=== PATIENT | female | born 1995 | race Hispanic/Latino ===

== ENCOUNTER 2021-06-20 20:35 | Emergency (ER) | payer MEDICAID ==
[~2021-06-20] VITALS: Ht 160 cm; Wt 78.5 kg
[2021-06-20 21:10] LABS: BASOPHILS % (AUTO) 0.3 % (0.0-5.0); EOSINOPHILS % (AUTO) 0.5 % (0.0-8.0); HEMATOCRIT 37.3 % (36-48); MEAN CORPUSCULAR HGB CONC 33.2 g/dL (32.0-36.0); MEAN CORPUSCULAR VOLUME 87.4 fL (79-99); PLATELET COUNT (AUTO) 417 K/uL (130-400); RED BLOOD CELL COUNT(AUTO) 4.27 MIL/uL (4.00-5.50); RED CELL DISTRIBUTION WIDTH 11.9 % (11.0-15.5); WHITE BLOOD COUNT (AUTO) 12.5 K/uL (4.8-10.8)
[2021-06-20 21:11] LABS: APPEARANCE,URINE Cloudy (CLEAR); BILIRUBIN,URINE Negative (NEGATIVE); COLOR,URINE Yellow (YELLOW); GLUCOSE, URINE (UA) Negative (NEGATIVE); KETONES,URINE Negative (NEGATIVE); LEUKOCYTE ESTERASE ,URINE Small (NEGATIVE); NITRATE,URINE Negative (NEGATIVE); OCCULT BLOOD,URINE Large (NEGATIVE); PROTEIN,URINE Trace mg/dL (NEGATIVE); UROBILINOGEN,URINE 0.2 mg/dL (0.2-1.0)
[2021-06-20 21:13] LABS: HCG,QUAL RESULT POSITIVE (NEGATIVE)
[2021-06-20 21:20] LABS: CREATININE 0.7 mg/dL (0.5-1.5); POTASSIUM 3.4 mmol/L (3.5-5.1)
[2021-06-20 21:32] LABS: BACTERIA,URINE Few /HPF (None Seen); MUCUS,URINE Few LPF (None Seen); SQUAMOUS EPITHELIAL CELL,UR Few /HPF (0-2); TRICHOMONAS,URINE Moderate /LPF (None Seen)
[2021-06-20 21:51] LABS: ALBUMIN 3.9 g/dL (3.5-5.0); BILIRUBIN,TOTAL 0.1 mg/dL (0.2-1.0); TOTAL PROTEIN, SERUM 7.8 g/dL (6.0-8.3)
[2021-06-20] MEDS ORDERED: CEFTRIAXONE 1G VIAL ONE (22:30)
[2021-06-20] MEDS ORDERED: CEFTRIAXONE 1G VIAL IM ONE (22:30)
[2021-06-20 22:45] VITALS: BP 110/60
[2021-06-20] MEDS ORDERED: MACR100 PO (23:22)
== END 2021-06-20 23:33 | disposition home or self-care (01) ==
LOC: EDH 20:35
DX: O20.0 Threatened abortion (principal); N39.0 Urinary tract infection, site not specified; Z3A.01 Less than 8 weeks gestation of pregnancy
CPT/HCPCS: 36415; 76817; 80053; 81001; 81025; 84702; 85025; 86900; 86901; 96372; J0696

== ENCOUNTER 2021-06-23 23:24 | Emergency (ER) | payer MEDICAID ==
[~2021-06-23] VITALS: Ht 160 cm; Wt 78.5 kg
[~2021-06-23 23:24] MED LIST: MACR100 PO
[2021-06-24] MEDS ORDERED: ONDANSETRON 4MG INJ ONE (00:17)
[2021-06-24] MEDS ORDERED: MORPHINE 4 MG SYG ONE ×2 (00:18→02:41)
[2021-06-24] MEDS ORDERED: 0.9%NACL 1000ML 1,000 ML IV ONE (00:18)
[2021-06-24 00:25] LABS: CREATININE 0.7 mg/dL (0.5-1.5); POTASSIUM 3.5 mmol/L (3.5-5.1)
[2021-06-24 00:35] LABS: BASOPHILS % (AUTO) 0.4 % (0.0-5.0); EOSINOPHILS % (AUTO) 0.6 % (0.0-8.0); HEMATOCRIT 36.7 % (36-48); LYMPHOCYTES % (AUTO) 32.5 % (21.0-51.0); MEAN CORPUSCULAR HEMOGLOBIN 28.7 pg (27.0-33.0); MEAN CORPUSCULAR VOLUME 87.2 fL (79-99); MONOCYTES % (AUTO) 8.2 % (3.0-13.0); NEUTROPHILS % (AUTO) 58.2 % (40.0-77.0); PLATELET COUNT (AUTO) 423 K/uL (130-400); RED BLOOD CELL COUNT(AUTO) 4.21 MIL/uL (4.00-5.50); RED CELL DISTRIBUTION WIDTH 11.8 % (11.0-15.5); WHITE BLOOD COUNT (AUTO) 10.1 K/uL (4.8-10.8)
[2021-06-24 00:51] LABS: ALBUMIN 3.8 g/dL (3.5-5.0); BILIRUBIN,TOTAL 0.2 mg/dL (0.2-1.0); TOTAL PROTEIN, SERUM 7.7 g/dL (6.0-8.3)
[2021-06-24 01:11] VITALS: BP 99/52
[2021-06-24] MEDS ORDERED: ACET-2079 PO (03:12)
== END 2021-06-24 03:28 | disposition home or self-care (01) ==
LOC: EDH 23:24
DX: O03.4 Incomplete spontaneous abortion without complication (principal)
CPT/HCPCS: 36415; 76801; 80053; 84702; 85025; 86850; 86900; 86901; 96374; 96375; 96376; 99284; J2270 ×2; J2405; J7030

== ENCOUNTER 2022-05-27 11:21 | Observation (INO) | payer MEDICAID ==
[~2022-05-27] VITALS: Ht 160 cm; Wt 79.4 kg
[2022-05-27] VITALS (25 sets, daily range): BP systolic 96–126; BP diastolic 51–70
[~2022-05-27 11:21] MED LIST changes: +ACET-2079 PO
[2022-05-27 12:48] LABS: BASOPHILS % (AUTO) 0.3 % (0.0-5.0); EOSINOPHILS % (AUTO) 0.1 % (0.0-8.0); HEMATOCRIT 36.1 % (36-48); LYMPHOCYTES % (AUTO) 21.9 % (21.0-51.0); MEAN CORPUSCULAR HEMOGLOBIN 28.8 pg (27.0-33.0); MEAN CORPUSCULAR HGB CONC 33.2 g/dL (32.0-36.0); MEAN CORPUSCULAR VOLUME 86.8 fL (79-99); MONOCYTES % (AUTO) 4.7 % (3.0-13.0); NEUTROPHILS % (AUTO) 72.5 % (40.0-77.0); PLATELET COUNT (AUTO) 413 K/uL (130-400); RED BLOOD CELL COUNT(AUTO) 4.16 MIL/uL (4.00-5.50); RED CELL DISTRIBUTION WIDTH 12.1 % (11.0-15.5); WHITE BLOOD COUNT (AUTO) 10.9 K/uL (4.8-10.8)
[2022-05-27 12:54] LABS: CREATININE 0.7 mg/dL (0.5-1.5); POTASSIUM 3.4 mmol/L (3.5-5.1)
[2022-05-27 13:22] LABS: ALBUMIN 3.9 g/dL (3.5-5.0); TOTAL PROTEIN, SERUM 7.5 g/dL (6.0-8.3)
[2022-05-27] MEDS ORDERED: ONDANSETRON 4MG INJ IVP ONE (13:30)
[2022-05-27] MEDS ORDERED: MORPHINE 4 MG SYG IVP ONE (13:30)
[2022-05-27 14:06] LABS: APPEARANCE,URINE CLOUDY (CLEAR); BILIRUBIN,URINE NEGATIVE (NEGATIVE); COLOR,URINE YELLOW (YELLOW); GLUCOSE, URINE (UA) NEGATIVE (NEGATIVE); KETONES,URINE 20 mg/dL (NEGATIVE); LEUKOCYTE ESTERASE ,URINE 25 Leu/uL (NEGATIVE); NITRATE,URINE 2+ (NEGATIVE); OCCULT BLOOD,URINE MODERATE (NEGATIVE); PH,URINE 5.5 (5.0-8.0); PROTEIN,URINE 10 mg/dL (NEGATIVE); UROBILINOGEN,URINE 0.2 mg/dL (0.2-1.0)
[2022-05-27 14:19] LABS: BACTERIA,URINE MOD /HPF (None Seen); MUCUS,URINE FEW LPF (None Seen); SQUAMOUS EPITHELIAL CELL,UR MOD /HPF (0-2)
[2022-05-27] MEDS ORDERED: ONDANSETRON 4MG INJ ONE (15:46)
[2022-05-27] MEDS ORDERED: DEXAMETHASONE SOD PHOSPHATE 10MG/ML 1ML VIAL ONE (15:46)
[2022-05-27] MEDS ORDERED: MIDAZOLAM HCL 1 MG/ML 2ML VIAL ONE (15:46)
[2022-05-27] MEDS ORDERED: SUCCINYLCHOLINE CHLORIDE 20 MG/ML 10 ML VIAL ONE (15:46)
[2022-05-27] MEDS ORDERED: LIDOCAINE PF 100MG/5ML (2%) SYRINGE 5ML ONE (15:46)
[2022-05-27] MEDS ORDERED: KETOROLAC 30MG VIAL (30MG/ML) ONE (15:47)
[2022-05-27] MEDS ORDERED: GLYCOPYRROLATE 1 MG/5 ML SYRINGE ONE (15:47)
[2022-05-27] MEDS ORDERED: FENTANYL CITRATE PF 50 MCG/1 ML 2ML VIAL ONE ×2 (15:47→16:29)
[2022-05-27] MEDS ORDERED: ROCURONIUM 10MG/1ML SYR 10 MG/ML ML ONE (15:47)
[2022-05-27] MEDS ORDERED: PROPOFOL 10 MG/ML 20ML VIAL IV ONE (15:47)
[2022-05-27] MEDS ORDERED: PHENYLEPHRINE HCL 10 MG/ML 1ML VIAL IV ONE (17:26)
[2022-05-27] MEDS ORDERED: NEOSTIGMINE 5MG/5ML SYR IV ONE (17:30)
[2022-05-27] MEDS ORDERED: MEPERIDINE-PF 25 MG/ML SYG ONE ×2 (18:21→18:35)
[2022-05-27] MEDS ORDERED: ACETAMINOPHEN WITH CODEINE 1 TAB TAB PO PRN (20:00)
[2022-05-27] MEDS ORDERED: IBUPROFEN 600 MG TABLET PO PRN (20:00)
[2022-05-27] MEDS ORDERED: PROMETHAZINE HCL 25 MG/ML 1ML AMPULE IM PRN (20:00)
[2022-05-27] MEDS ORDERED: BISACODYL 10 MG SUPP.RECT RC PRN (20:00)
[2022-05-27] MEDS ORDERED: DOCUSATE SODIUM 100 MG CAP PO PRN (20:00)
[2022-05-27] MEDS: SIMETHICONE 80 MG TAB.CHEW PO PRN (21:12)
[2022-05-27] MEDS: PROMETHAZINE HCL 25 MG/ML 1ML AMPULE IM PRN (21:13)
[2022-05-27] MEDS: MEPERIDINE-PF 75 MG/ML SYG IM PRN (21:14)
[2022-05-27] MEDS: DEXTROSE 5%-LACTATED RINGERS 1,000 ML IV SCH (21:14)
[2022-05-28] MEDS: PROMETHAZINE HCL 25 MG/ML 1ML AMPULE IM PRN (00:06)
[2022-05-28] MEDS: MEPERIDINE-PF 75 MG/ML SYG IM PRN (00:06)
[2022-05-28 02:32] VITALS: BP 116/59
[2022-05-28] MEDS: DEXTROSE 5%-LACTATED RINGERS 1,000 ML IV SCH (05:18)
[2022-05-28 05:56] LABS: HEMATOCRIT 28.6 % (36-48); MEAN CORPUSCULAR HEMOGLOBIN 29.7 pg (27.0-33.0); MEAN CORPUSCULAR HGB CONC 32.9 g/dL (32.0-36.0); MEAN CORPUSCULAR VOLUME 90.2 fL (79-99); RED BLOOD CELL COUNT(AUTO) 3.17 MIL/uL (4.00-5.50); RED CELL DISTRIBUTION WIDTH 12.1 % (11.0-15.5); WHITE BLOOD COUNT (AUTO) 13.2 K/uL (4.8-10.8)
[2022-05-28 07:25] VITALS: BP 96/59
[2022-05-28] MEDS: SIMETHICONE 80 MG TAB.CHEW PO PRN (08:54)
[2022-05-28 11:25] VITALS: BP 98/54
== END 2022-05-28 15:25 | disposition home or self-care (01) ==
LOC: EDH 11:21 → EDHIP 11:22 → WSH 19:10
PROVIDERS: ADMIT Internal Medicine; ATTEND Internal Medicine
DX: O00.101 Right tubal pregnancy without intrauterine pregnancy (principal)
CPT/HCPCS: 59151; 96374; 96372 ×2; 96375; 99285; 80053; 84702; 85025; 85014; 85018; 86850; 86900; 86901; 87077; 87088; 87186; 81001; 81025; 36415 ×2; 88305; 76705; 76801; 85027; G0378 ×23; A4351; A4606; J3010 ×2; J3490 ×3; J1100; J2710; J0330; J2550 ×2; J2250; J2405 ×2; J2270; J1885; J2175 ×4; C1769 ×2; A4649 ×4; G0168; A4215; A4600; A4510; L0625; J2001; J2370; J2704

== ENCOUNTER 2023-03-12 03:55 | Emergency (ER) | payer MEDICAID, OTHER ==
[~2023-03-12] VITALS: Ht 160 cm; Wt 79.4 kg
[2023-03-12 04:27] LABS: BASOPHILS # (AUTO) 0.04 K/uL (0.00-0.20); BASOPHILS % (AUTO) 0.3 % (0.0-5.0); EOSINOPHILS # (AUTO) 0.09 K/uL (0.00-0.70); EOSINOPHILS % (AUTO) 0.7 % (0.0-8.0); IMMATURE GRANULOCYTE ABSOLUTE 0.04 K/uL (0-1); LYMPHOCYTES # (AUTO) 5.5 K/uL (1.0-4.8); LYMPHOCYTES % (AUTO) 43.8 % (21.0-51.0); MEAN CORPUSCULAR HEMOGLOBIN 29.3 pg (27.0-33.0); MEAN CORPUSCULAR HGB CONC 33.4 g/dL (32.0-36.0); MEAN CORPUSCULAR VOLUME 87.8 fL (79-99); MONOCYTES # (AUTO) 0.9 K/uL (0.1-1.0); MONOCYTES % (AUTO) 7.3 % (3.0-13.0); NEUTROPHILS % (AUTO) 47.6 % (40.0-77.0); PLATELET COUNT (AUTO) 448 K/uL (130-400); RED BLOOD CELL COUNT(AUTO) 4.33 MIL/uL (4.00-5.50); WHITE BLOOD COUNT (AUTO) 12.5 K/uL (4.8-10.8)
[2023-03-12 04:28] LABS: APPEARANCE,URINE CLEAR (CLEAR); BILIRUBIN,URINE NEGATIVE (NEGATIVE); COLOR,URINE LIGHT-YELLOW (YELLOW); GLUCOSE, URINE (UA) NEGATIVE (NEGATIVE); KETONES,URINE NEGATIVE (NEGATIVE); LEUKOCYTE ESTERASE ,URINE NEGATIVE Leu/uL (NEGATIVE); NITRATE,URINE NEGATIVE (NEGATIVE); PH,URINE 5.5 (5.0-8.0); PROTEIN,URINE NEGATIVE (NEGATIVE); UROBILINOGEN,URINE 0.2 mg/dL (0.2-1.0)
[2023-03-12] MEDS ORDERED: METOCLOPRAMIDE 10 MG/2 ML VIAL IVP ONE (04:30)
[2023-03-12] MEDS ORDERED: MORPHINE 2 MG SYG IVP ONE (04:30)
[2023-03-12] MEDS ORDERED: LACTATED RINGERS 1000ML IV ONE (04:30)
[2023-03-12 04:36] LABS: ADD UA MICROSCOPIC NO; OCCULT BLOOD,URINE NEGATIVE (NEGATIVE)
[2023-03-12 04:37] LABS: CARBON DIOXIDE 25 mmol/L (21-32); CHLORIDE 102 mmol/L (101-111); CREATININE 0.7 mg/dL (0.5-1.5); GLOMERULAR FILTR. RATE CALC 123 mL/min (>90); GLUCOSE,RANDOM 110 mg/dL (70-105); POTASSIUM 3.2 mmol/L (3.5-5.1); SODIUM SERUM 140 mmol/L (136-145); UREA NITROGEN, BLOOD 8 mg/dL (7-18)
[2023-03-12 04:42] LABS: ALANINE AMINOTRANSFERASE 20 U/L (12-78); ALBUMIN 3.5 g/dL (3.5-5.0); ASPARTATE AMINOTRANSFERASE 13 U/L (10-37); BILIRUBIN,DIRECT < 0.1 mg/dL (0.0-0.3); BILIRUBIN,TOTAL 0.1 mg/dL (0.2-1.0); TOTAL PROTEIN, SERUM 7.6 g/dL (6.0-8.3)
[2023-03-12] MEDS ORDERED: MORPHINE 4 MG SYG ONE (04:57)
[2023-03-12] MEDS ORDERED: MORPHINE 4 MG SYG IVP ONE (05:00)
[2023-03-12 05:13] LABS: BASOPHILS % (MANUAL) 1 % (0-2); EOSINOPHILS % (MANUAL) 1 % (1-6); LYMPHOCYTES % (MANUAL) 35 % (22-44); MAN.DIFF COMMENT-IMPRESSION MANUAL DIFFERENTIAL; MONOCYTES % (MANUAL) 5 % (2-9); PLATELET MORPHOLOGY COMMENT ADEQUATE; SEGMENTED NEUTROPHILS % 58 % (40-70); TOTAL CELLS COUNTED 100; WBC MORPHOLOGY CONSISTENT W/DIFF
[2023-03-12] MEDS ORDERED: IOHEXOL-350 75 ML VIAL IV ONE (05:47)
[2023-03-12 07:40] VITALS: BP 106/71; PULSE 78; RESP 17; O2SAT 99
[2023-03-12] MEDS ORDERED: KETOROLAC 15MG/ML VIAL (15MG/ML) IV ONE (08:30)
== END 2023-03-12 08:58 | disposition home or self-care (01) ==
LOC: EDH 03:55
DX: R10.31 Right lower quadrant pain (principal); Z98.890 Other specified postprocedural states
CPT/HCPCS: 99285; 74178; 96374; 76705; 96375; 96361; 80076; 80048; 83690; 85025; 81003; 81025; 36415; 96376; J7120; J2270 ×2; J2765; J1885; Q9967

== ENCOUNTER 2023-05-02 02:48 | Emergency (ER) | payer BC, OTHER ==
[2023-05-02 04:34] LABS: BASOPHILS # (AUTO) 0.03 K/uL (0.00-0.20); BASOPHILS % (AUTO) 0.3 % (0.0-5.0); EOSINOPHILS # (AUTO) 0.03 K/uL (0.00-0.70); EOSINOPHILS % (AUTO) 0.3 % (0.0-8.0); HEMATOCRIT 35.3 % (36-48); IMMATURE GRANULOCYTE ABSOLUTE 0.05 K/uL (0-1); LYMPHOCYTES # (AUTO) 2.7 K/uL (1.0-4.8); LYMPHOCYTES % (AUTO) 23.3 % (21.0-51.0); MEAN CORPUSCULAR HEMOGLOBIN 29.4 pg (27.0-33.0); MEAN CORPUSCULAR HGB CONC 34.3 g/dL (32.0-36.0); MEAN CORPUSCULAR VOLUME 85.9 fL (79-99); MONOCYTES # (AUTO) 0.8 K/uL (0.1-1.0); NEUTROPHILS # (AUTO) 7.8 K/uL (1.8-7.7); NEUTROPHILS % (AUTO) 68.7 % (40.0-77.0); PLATELET COUNT (AUTO) 390 K/uL (130-400); RED BLOOD CELL COUNT(AUTO) 4.11 MIL/uL (4.00-5.50); RED CELL DISTRIBUTION WIDTH 12.3 % (11.0-15.5); WHITE BLOOD COUNT (AUTO) 11.4 K/uL (4.8-10.8)
[2023-05-02 04:52] LABS: CREATININE 0.6 mg/dL (0.5-1.5); POTASSIUM 3.9 mmol/L (3.5-5.1)
[2023-05-02 04:57] LABS: ALBUMIN 3.6 g/dL (3.5-5.0); BILIRUBIN,TOTAL 0.2 mg/dL (0.2-1.0); TOTAL PROTEIN, SERUM 7.5 g/dL (6.0-8.3)
[2023-05-02 05:29] LABS: APPEARANCE,URINE CLEAR (CLEAR); BILIRUBIN,URINE NEGATIVE (NEGATIVE); COLOR,URINE LIGHT-YELLOW (YELLOW); GLUCOSE, URINE (UA) NEGATIVE (NEGATIVE); KETONES,URINE NEGATIVE (NEGATIVE); LEUKOCYTE ESTERASE ,URINE NEGATIVE Leu/uL (NEGATIVE); NITRATE,URINE NEGATIVE (NEGATIVE); PH,URINE 5.5 (5.0-8.0); PROTEIN,URINE NEGATIVE (NEGATIVE); UROBILINOGEN,URINE 0.2 mg/dL (0.2-1.0)
[2023-05-02 05:30] LABS: ADD UA MICROSCOPIC YES
[2023-05-02 05:31] LABS: BACTERIA,URINE RARE /HPF (None Seen); HCG,QUALITATIVE URINE NEGATIVE (NEGATIVE); MUCUS,URINE RARE LPF (None Seen); OTHER CASTS, URINE 1 /LPF (None Seen); SQUAMOUS EPITHELIAL CELL,UR MOD /HPF (0-2)
[2023-05-02] MEDS: MORPHINE 2 MG SYG IVP ONE (06:43)
[2023-05-02] MEDS: KETOROLAC 30MG VIAL (30MG/ML) IVP ONE (09:43)
[2023-05-02] MEDS: CEFTRIAXONE 1G VIAL IVPB ONE (10:31)
[2023-05-02] MEDS: DOXYCYCLINE HYCLATE 100 MG TABLET PO SCH (10:32)
[2023-05-02] MEDS ORDERED: ONDA4TAB10 PO (12:06)
[2023-05-02] MEDS ORDERED: DOXY-469 PO (12:06)
[2023-05-02] MEDS ORDERED: METR45GE10 TP (12:08)
[2023-05-02 12:19] VITALS: BP 105/68; PULSE 80; RESP 17; O2SAT 98
== END 2023-05-02 12:20 | disposition home or self-care (01) ==
LOC: EDH 02:48
DX: N76.0 Acute vaginitis (principal); N70.11 Chronic salpingitis; Z98.890 Other specified postprocedural states
CPT/HCPCS: 99285; 74176; 96365; 76856; 96375; 80053; 85025; 87210; 87077; 87088; 87186; 87797; 87486; 81001; 81025; 36415; J2270; J0696; J1885

== ENCOUNTER 2023-10-24 21:37 | Emergency (ER) | payer BC ==
[~2023-10-24] VITALS: Ht 160 cm; Wt 81.2 kg
[~2023-10-24 21:37] MED LIST changes: -ACET-2079 PO; +DOXY100C61 PO; -MACR100 PO; +METR45GE10 TP; +ONDA-243 PO
[2023-10-24 22:10] LABS: BASOPHILS # (AUTO) 0.04 K/uL (0.00-0.20); BASOPHILS % (AUTO) 0.4 % (0.0-5.0); EOSINOPHILS # (AUTO) 0.02 K/uL (0.00-0.70); EOSINOPHILS % (AUTO) 0.2 % (0.0-8.0); IMMATURE GRANULOCYTE ABSOLUTE 0.02 K/uL (0-1); LYMPHOCYTES # (AUTO) 2.1 K/uL (1.0-4.8); MEAN CORPUSCULAR HEMOGLOBIN 29.9 pg (27.0-33.0); MEAN CORPUSCULAR HGB CONC 33.8 g/dL (32.0-36.0); MEAN CORPUSCULAR VOLUME 88.2 fL (79-99); MONOCYTES # (AUTO) 0.7 K/uL (0.1-1.0); MONOCYTES % (AUTO) 6.6 % (3.0-13.0); NEUTROPHILS # (AUTO) 7.1 K/uL (1.8-7.7); NEUTROPHILS % (AUTO) 71.6 % (40.0-77.0); PLATELET COUNT (AUTO) 401 K/uL (130-400); RED BLOOD CELL COUNT(AUTO) 4.42 MIL/uL (4.00-5.50); RED CELL DISTRIBUTION WIDTH 11.9 % (11.0-15.5); WHITE BLOOD COUNT (AUTO) 9.9 K/uL (4.8-10.8)
[2023-10-24 22:16] LABS: BILIRUBIN,URINE NEGATIVE (NEGATIVE); COLOR,URINE LIGHT-YELLOW (YELLOW); GLUCOSE, URINE (UA) NEGATIVE (NEGATIVE); KETONES,URINE 5 mg/dL (NEGATIVE); LEUKOCYTE ESTERASE ,URINE NEGATIVE Leu/uL (NEGATIVE); NITRATE,URINE NEGATIVE (NEGATIVE); OCCULT BLOOD,URINE SMALL (NEGATIVE); PROTEIN,URINE 10 mg/dL (NEGATIVE); UROBILINOGEN,URINE 0.2 mg/dL (0.2-1.0)
[2023-10-24 22:18] LABS: ADD UA MICROSCOPIC YES; APPEARANCE,URINE SLIGHTLY CLOUDY (CLEAR)
[2023-10-24 22:22] LABS: CREATININE 0.7 mg/dL (0.5-1.0); POTASSIUM 3.9 mmol/L (3.5-5.1)
[2023-10-24 22:26] LABS: ALBUMIN 3.8 g/dL (3.5-5.0); BILIRUBIN,TOTAL 0.1 mg/dL (0.2-1.0); TOTAL PROTEIN, SERUM 7.8 g/dL (6.0-8.3)
[2023-10-24 22:26] LABS: BACTERIA,URINE RARE /HPF (None Seen); MUCUS,URINE RARE LPF (None Seen); SQUAMOUS EPITHELIAL CELL,UR MANY /HPF (0-2)
[2023-10-24 22:30] LABS: COVID19 (SARS ANTIGEN RAPID) PRESUMPTIVE NEGATIVE (NEGATIVE); INFLUENZA TYPE A Negative For Type A (NEGATIVE); INFLUENZA TYPE B Negative For Type B (NEGATIVE)
[2023-10-24] MEDS: METOCLOPRAMIDE 10 MG/2 ML VIAL IVP ONE (22:53)
[2023-10-24] MEDS: 0.9%NACL 1000ML 1,000 ML IV ONE (22:53)
[2023-10-24 23:13] VITALS: BP 122/61; PULSE 74; RESP 20; O2SAT 98
== END 2023-10-24 23:35 | disposition home or self-care (01) ==
LOC: EDH 21:37
DX: G43.909 Migraine, unspecified, not intractable, without status migrainosus (principal); Z79.899 Other long term (current) drug therapy; Z20.822 Contact with and (suspected) exposure to COVID-19
CPT/HCPCS: 99284; 96374; 87426; 80053; 85025; 87804 ×2; 81001; 81025; 36415; J7030; J2765